=== PATIENT | female | born 1995 | race Two or more races ===

== ENCOUNTER 2024-11-08 11:44 | Emergency (ER) | payer MEDICAID ==
[~2024-11-08] VITALS: Ht 157.5 cm; Wt 63.5 kg
[2024-11-08 11:52] VITALS: TEMP 98.6
[2024-11-08] MEDS ORDERED: LORAZEPAM 1 MG TABLET ONE (12:33)
[2024-11-08] MEDS ORDERED: ONDANSETRON 4 MG TAB.RAPDIS ONE (12:34)
[2024-11-08] MEDS: LORAZEPAM 0.5 MG TABLET PO ONE (12:37)
[2024-11-08] MEDS: ONDANSETRON 4 MG TAB.RAPDIS SL ONE (12:37)
[2024-11-08] MEDS ORDERED: CHLO25CA22 PO (12:42)
[2024-11-08 13:31] VITALS: BP 110/76; O2SAT 99
== END 2024-11-08 13:30 | disposition home or self-care (01) ==
LOC: ER 11:48
DX: F13.239 Sedative, hypnotic or anxiolytic dependence with withdrawal, unspecified (principal); R11.2 Nausea with vomiting, unspecified
CPT/HCPCS: 99283; Q0162